=== PATIENT | male | born 1960 | race Hispanic/Latino ===

== ENCOUNTER → 2024-10-21 | Outpatient (CLI) | payer OTHER, MEDICARE ==
[~2024-10-21] MED LIST: ASPI-1005 PO; ATOR10 PO; FURO20TA6 PO; METO25 PO; TYL3 PO
--- NOTE | 2024-10-22 18:07 | HMCSR ---
APPROVED REPORT EXAM: Two-dimensional and M-mode echocardiogram with Doppler and color Doppler. INDICATION ICD: R01.01, Z95.1 2D Dimensions RVDd4.1 cmLVEF(%)49.6 (>50%)LVED Vol(simp.)114.0 mL IVSd1.3 (0.7-1.1cm)FS(%)25 %LVES Vol(simp.)56.3 mL LVDd4.8 (3.8-5.6cm)LA (2D)4.2 (1.6-4.0cm)LVEF(%, simp.)51 % PWd1.1 (0.7-1.1cm)Ao Root(2D)3.7 (2.0-3.7cm)LA ESV INDEX (4CH)34.80 mL/m2 IVSs1.4 cmLVOT diam1.8 (1.8-2.4cm)LA ESV INDEX (2CH)26.20 mL/m2 LVDs3.6 (2.5-4.0cm) PWs1.5 cm M-Mode Dimensions EPSS0.7 cm LA (MM)4.4 (1.6-4.0cm) Ao Root(MM)4.0 (2.0-3.7cm) Aortic Valve AoV VTI0.3 mAo Mean GR5.0 mmHgLVOT VTI0.21 m DEDRICK (VMAX)2.2 cm2AVA (VTI) 2.2 cm2 Mitral Valve MV E Vmax62.6 cm/sDECEL Sepy630 ms MV A Vmax92.6 cm/sP 1/2 T69 ms E/A ratio0.7MVA (PHT)3.2 cm2 MR Max PG36 mmHg TDI E/E' Xlmymo84.5E/E' Lateral7.6 Medial E' Peak V5.00 cm/sLateral E' Peak V8.20 cm/s Pulmonary Valve PV Vmax1.3 m/s PV Peak GR6.4 mmHg Left Ventricle Left ventricular cavity size is normal. There is normal LV segmental wall motion. Mild to moderate co ncentric left ventricular hypertrophy. LVEF is 50-55%. Stage I diastolic dysfunction. Right Ventricle The right ventricle is normal size. The right ventricular systolic function is normal. Atria The left atrium size is normal. The right atrium size is normal. Aortic Valve Aortic valve is trileaflet and opens well. No aortic regurgitation is present. There is no aortic nomi vular stenosis. Mitral Valve The mitral valve is normal in structure. There is trace of mitral valve regurgitation noted. There is no mitral valve stenosis. Tricuspid Valve The tricuspid valve is normal in structure. There is no tricuspid valve regurgitation noted. Pulmonic Valve The pulmonary valve is normal in structure. There is no pulmonic valvular regurgitation. Great Vessels The aortic root is normal in size. The IVC is normal in size and collapses >50% with inspiration. Pericardium There is no pericardial effusion. Other Information Quality : Fair Conclusion LVEF is 50-55%. Stage I diastolic dysfunction. There is normal LV segmental wall motion. The aortic root is normal in size. There is no pericardial effusion. The aortic root is normal in size.
== END | disposition home or self-care (01) ==
LOC: SHCH 14:11
PROVIDERS: ATTEND Internal Medicine Cardiovascular Disease
DX: I51.89 Other ill-defined heart diseases (principal); I51.7 Cardiomegaly; R01.1 Cardiac murmur, unspecified; Z95.1 Presence of aortocoronary bypass graft
CPT/HCPCS: 93306

== ENCOUNTER → 2025-01-06 | Outpatient (CLI) | payer OTHER, MEDICARE ==
--- NOTE | 2025-01-06 14:34 | HMCIMG ---
CT CHEST HIGH RESOLUTION (WO) HISTORY: Lung cancer screening COMPARISON: 12/29/2009 TECHNIQUE: Multiple sequential axial images of the chest were obtained from the thoracic inlet through upper abdomen. Patient was not given contrast through intravenous route. High-resolution images were obtained. FINDINGS: COPD changes are seen. Coronary arterial calcifications are seen. There is no evidence of pulmonary nodule or parenchymal disease. No pleural effusion or pericardial effusion is seen. There is no evidence of pneumothorax. There are normal size mediastinal and hilar lymph nodes. The heart is not enlarged. Degenerative changes of the thoracolumbar spine are present. There is no evidence of adrenal nodule. IMPRESSION: 1. No evidence of pulmonary nodule or effusion is seen. CT was performed with one or more following dose reduction techniques: automated exposure control, adjustment of the mA and kv according to patient's size, or use of a iterative reconstruction technique.
== END | disposition home or self-care (01) ==
LOC: RAH 10:25
PROVIDERS: ATTEND Internal Medicine
DX: Z12.2 Encounter for screening for malignant neoplasm of respiratory organs (principal); J44.9 Chronic obstructive pulmonary disease, unspecified; I25.10 Atherosclerotic heart disease of native coronary artery without angina pectoris; M47.815 Spondylosis without myelopathy or radiculopathy, thoracolumbar region; K70.9 Alcoholic liver disease, unspecified; F10.90 Alcohol use, unspecified, uncomplicated; F17.200 Nicotine dependence, unspecified, uncomplicated; Y90.9 Presence of alcohol in blood, level not specified
CPT/HCPCS: 71250